=== PATIENT | female | born 1960 | race Caucasian/White ===

== ENCOUNTER 2020-06-23 15:59 | Inpatient (IN) | payer BC, SELFPAY ==
[2020-06-23] VITALS (8 sets, daily range): BP systolic 116–183; BP diastolic 65–96; PULSE 105–140; RESP 22–30; TEMP 36.6–37.6; O2SAT 91–96; BMI 25.7
--- NOTE | ~2020-06-23 | CT_ITS ---
EXAMINATION: CT chest wo con DATE: 06/26/2020 15:34 INDICATION: Sepsis secondary to pneumonia TECHNIQUE: Computed tomography (CT) of the chest was performed without intravenous contrast. Automate d exposure control and iterative reconstruction technique were employed. Exam dose: 147.11 mGy-cm to christopher exam DLP. COMPARISON: 02/27/2014, 06/19/2018 two-view chest x-ray examinations 06/23/2020 portable AP chest FINDINGS: Normal heart size. There is trace pericardial effusion. No hilar or mediastinal mass lesion or lymphadenopathy Trace pericardial effusion; no pleural effusion.. No thoracic aortic aneurysm is detected. There are increased reticular markings involving particularly the upper lobes and to a lesser extent the peripheral aspect of the lower lobes. Differential diagnosis includes interstitial pneumonitis, i nterstitial edema, interstitial fibrosis/usual interstitial pneumonia. There is discoid atelectasis or scarring in the left lower lobe. No pulmonary mass lesion is evident. No pneumothorax. Diffuse osteopenia. Degenerative changes of the cervical, thoracic and lumbar spine. IMPRESSION: Increased reticular lung markings involving the upper lobes and to a lesser extent lower lobes, with peripheral predilection; differential diagnosis includes interstitial pneumonitis, inter stitial edema and interstitial fibrosis/usual interstitial pneumonia Reviewed, dictated and finalized at [facility] Reviewed, dictated and finalized at [facility]. IMPRESSION: Increased reticular lung markings involving the upper lobes and to a lesser extent lower lobes, with peripheral predilection; differential diagno sis includes interstitial pneumonitis, interstitial edema and interstitial fibr osis/usual interstitial pneumonia
--- NOTE | ~2020-06-23 | XR_ITS ---
EXAMINATION: XR chest 1V portable INDICATION: Fever and shortness of breath TECHNIQUE: Portable AP chest at 1709 hours COMPARISON: 06/19/2018 FINDINGS: There are diffuse, patchy airspace opacities throughout all lung zones. No pleural effusion or pneumothorax is identified. The cardiomediastinal silhouette is normal. IMPRESSION: 1. Diffuse airspace opacities, consistent with pneumonia versus pulmonary edema or less likely atelec tasis. Reviewed, dictated and finalized at [facility]. IMPRESSION: 1. Diffuse airspace opacities, consistent with pneumonia versus pulmonary edema or less likely atelectasis.
[2020-06-23 16:57] LABS: Basophils Absolute Auto 0.1 K/mm3 (0.0-0.1); Basophils Percent Auto 0.3 % (0.2-1.2); Immature Granulocyte Absolute 0.14 K/mm3 (0.00-0.031); Immature Granulocyte Percent A 0.7 % (0-0.5); Lymphocytes Absolute Auto 0.55 K/mm3 (0.9-3.2); Lymphocytes Percent Auto 2.9 % (18.3-44.2); Mean Corpuscular HGB Conc 33.3 g/dl (32-36); Mean Corpuscular Hemoglobin 29.4 pg (26-34); Mean Corpuscular Volume 88.2 fl (80-100); Monocytes Absolute Auto 1.6 K/mm3 (0.1-0.6); Monocytes Percent Auto 8.5 % (2.6-8.5); Neutrophils Absolute Auto 16.6 K/mm3 (1.3-6.7); Neutrophils Percent Auto 87.6 % (45.5-73.1); Platelet Count Result 339 k/mm3 (150-375); Red Cell Distribution Width 14.1 % (11.5-14.5); White Blood Count 18.9 K/mm3 (4.5-10.0)
[2020-06-23] MEDS: SODIUM CHLORIDE 0.9% IV 1,000 ML 999 ML (17:05)
--- NOTE | 2020-06-23 17:05 | ED.FEVER ---
HPI - Fever General Chief Complaint: Fever Stated Complaint: FEVER,O2 SAT 89% PCP WANTS COVID TEST Time Seen by Provider: 06/23/20 17:05 History of Present Illness HPI Narrative: 60 yo female w/ h/o COPD sent from PCP office for suspected COVID 19. Went to PCP for fever, headache, SOB. She was found to be hypoxic and tachycardic. She reports that her symptoms have been present for a few days and getting worse. No known sick contacts. Related Data Allergies Allergy/AdvReac Type Severity Reaction Status Date / Time No Known Allergies Allergy Unverified 06/19/18 10:54 Review of Systems Review of Systems: All systems reviewed & are unremarkable except as noted in HPI and below Constitutional: Constitutional: Reports fatigue and Reports fever(s) ENT: Reports nasal congestion Cardiovascular: Cardiovascular: Denies chest pain Respiratory: Respiratory: Reports dyspnea Gastrointestinal: Gastrointestinal: Reports nausea Genitourinary: Genitourinary: Denies hematuria and Denies dysuria Musculoskeletal: Musculoskeletal: Reports myalgias Neurologic: Reports dizziness and Denies weakness [facility] Past Medical History Medical History COPD (chronic obstructive pulmonary disease) Family History Family History (Updated 04/07/16 @ 23:21 by DOCTOR UNKNOWN) Sibling Patient's sister is in good health Mother Family history of malignant neoplasm of breast in first degree relative Social History Social History Smoking status: Former smoker Smoking end date: 09/10/16 Alcohol intake: current Exam Const: General: no acute distress, alert and ill appearing acutely Orientation/consciousness: patient oriented x3 HENMT: Head: normal to inspection Resp: Effort & Inspection: tachypneic Auscultation: rhonchi and wheezes Cardio: Rate: tachycardic Rhythm: regular rhythm Heart sounds: no murmurs GI: Inspection: non-distended GI Palp: Yes Soft to palpation and No Tenderness to palpation present (GI) Skin: General skin exam: normal color Neuro: General: patient oriented x3, moves all extremities and CN's II-XI intact bilaterally Speech: normal speech Extrem: General: normal to inspection and no edema Course Vital Signs Vital signs: Vital Signs Temperature 37.6 C 06/23/20 16:19 Pulse Rate 140 H 06/23/20 16:19 Respiratory Rate 28 H 06/23/20 16:19 Blood Pressure 144/65 H 06/23/20 16:19 Pulse Oximetry 91 06/23/20 16:19 Temperature 37.6 C 06/23/20 16:19 Pulse Rate 129 H 06/23/20 18:32 Respiratory Rate 22 H 06/23/20 18:32 Blood Pressure 133/78 06/23/20 18:32 Pulse Oximetry 96 06/23/20 18:32 MDM - Fever Differential Diagnosis Differential diagnosis: Likely viral infection, sepsis and other (COVID-19, pneumonia) Medical Records Attestation: I reviewed the patient's medical records. Lab Data Attestation: I reviewed the patient's lab results. Result diagrams: 06/23/20 16:44 06/23/20 16:44 Labs: Lab Results 06/23/20 06/23/20 06/23/20 Range/Units 16:44 16:44 16:44 WBC 18.9 H (4.5-10.0) K/mm3 RBC 5.10 (4.2-5.4) M/mm3 Hgb 15.0 (12.0-15.0) g/dL Hct 45.0 (37.0-47.0) % MCV 88.2 (80-100) fl MCH 29.4 (26-34) pg MCHC 33.3 (32-36) g/dl RDW 14.1 (11.5-14.5) % Plt Count 339 (150-375) k/mm3 MPV 11.0 H (7.4-10.4) fl Immature Gran % (Auto) 0.7 H (0-0.5) % Neut % (Auto) 87.6 H (45.5-73.1) % Lymph % (Auto) 2.9 L (18.3-44.2) % Harrison % (Auto) 8.5 (2.6-8.5) % Eos % (Auto) 0.0 (0-4.4) % Baso % (Auto) 0.3 (0.2-1.2) % Lymph # (Auto) 0.55 L (0.9-3.2) K/mm3 Harrison # (Auto) 1.6 H (0.1-0.6) K/mm3 Eos # (Auto) 0.0 (0-0.3) K/mm3 Baso # (Auto) 0.1 (0.0-0.1) K/mm3 Abs Immat Gran (auto) 0.14 H (0.00-0.031) K/mm3 Absolute Neuts (auto) 16.6 H (1.3-6.7) K/mm3 Absolute Nucleated RBC 0.0 (0.0-0.012) K/mm3
[2020-06-23 17:07] LABS: Lactic Acid Reflex 1.3 mmol/L (0.7-2.1)
[2020-06-23 17:10] LABS: Alanine Aminotransferase 39 U/L (4-35); Albumin Level 3.7 g/dL (3.5-5.1); Alkaline Phosphatase 162 U/L (38-126); Anion Gap 8 mmol/L (8-16); Aspartate Amino Transferase 38 U/L (14-36); Blood Urea Nitrogen 8 mg/dL (7-17); Calcium 9.4 mg/dL (8.4-10.2); Carbon Dioxide 28 mmol/L (22-30); Chloride 97 mmol/L (98-107); Estimated CRCL calculation 91 ml/min; Estimated Glomerular Filt Rate > 60; Glucose 127 mg/dL (65-105); Potassium 3.9 mmol/L (3.4-5.0); Sodium 133 mmol/L (137-145)
[2020-06-23 17:12] LABS: INR 1.1; Prothrombin Time 13.9 Seconds (11.1-14.7)
[2020-06-23 17:13] LABS: Partial Thromboplastin Time 31.9 SECONDS (22.3-36.8)
[2020-06-23 17:46] LABS: CRP 33.5 mg/dL (<1.0)
[2020-06-23] MEDS: SODIUM CHLORIDE 0.9% IV 1,000 ML 999 ML IV CONT (20:08)
--- NOTE | 2020-06-23 22:04 | ADMGEN ---
This patient, Jazmine Goode, was admitted to Intensive Care Unit-2. Patient/family oriented to hospital policies and general routines including ID bracelet, bed and alarms, visiting hours, pain management, procedures, bathroom and other care routines, personal items, smoking policy, room service/diet, and visiting hours. Valuables list has been completed. Information on how to activate the Rapid Response Team has been discussed. Patient/Family are encouraged to report perceived risks to care and to ask questions if they do not understand what they are told or what they should do.
--- NOTE | 2020-06-23 22:30 | PM.IMHP ---
H&P: HPI History of Present Illness Date/Time: 06/23/20 22:30 Chief complaint: Sepsis due to pneumonia Narrative: Jazmine Goode is a 60 year old female a history of COPD. The patient stated that she has been sick for 3 days. The patient stated that she has pretty much been quarantine all year. Her goes out gets the groceries. She had her rate was visit her like 3 weeks ago but stated that they use social to since seeing her great niece did not come into her house. The patient has had a cough and fever for 3 days. Patient stated she feels like she has the flu. She had body aches about 3 days ago. She is very short of breath and does not wear any oxygen at home at all. There are no other sick contacts. Her white count was noted to be 18.9. The patient has gone back to smoking some to but she states she has not smoked in a couple weeks. AST is 38 ALT is 39 alkaline phosphatase 162 and C reactive protein 33.5 COVID test is pending. Patient was started on azithromycin and Rocephin. She was started on dexamethasone. Chest x-ray was read as diffuse airspace opacities consistent with pneumonia versus pulmonary edema release likely atelectasis. Date of service 06/23/20. Review of Systems Review of Systems: All systems reviewed & are unremarkable except as noted in HPI and below Constitutional: Constitutional: Reports as per HPI and Reports no additional constitutional complaints Eyes: Eyes: Reports as per HPI and Reports no additional eye complaints ENT: Reports system reviewed and no additional complaints, except as documented and Reports Normal hearing present Cardiovascular: Cardiovascular: Reports no additional cardiovascular complaints Respiratory: Respiratory: Reports no additional respiratory complaints and Reports no additional respiratory complaints Gastrointestinal: Gastrointestinal: Reports as per HPI and Reports no additional gastrointestinal complaints Musculoskeletal: Musculoskeletal: Reports no additional musculoskeletal complaints Integumentary/Breasts: Skin/Breast: Reports system reviewed and no additional complaints, except as docu and Reports as per HPI Neurologic: Reports system reviewed and no additional complaints, except as documented, Reports as per HPI and Reports Normal hearing present Psychiatric: Psychiatric: Reports no additional psychiatric complaints and Reports as per HPI Endocrine: Endocrine: Reports no additional endocrine complaints Hematologic/Lymphatic: Hematologic/Lymphatic: Reports no additional hematologic/lymphatic complaints Allergic/Immunologic: Allergic/Immunologic: Reports no additional allergic/immunologic complaints PMFSH Past Medical History Medical History COPD (chronic obstructive pulmonary disease) Tobacco use Surgical History Surgical History (Updated 06/23/20 @ 22:47 by Deena Milian NP) H/O rectal polypectomy Family History Family History Sibling Patient's sister is in good health History of colon resection Mother Family history of malignant neoplasm of breast in first degree relative Father Cancer Social History Social History (Updated 06/23/20 @ 23:06 by Deena Milian NP) Social History: Patient is and lives with her who is a durable power tax attorney for healthcare. Patient is a full code. She has no children. She does not work. 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 The patient quit smoking for short period time but is back to smoking of about 7 cigarettes or more a day. She tells me that to smoke to the last couple weeks. Smoking packs per day: 1 Smoking cigarettes per day: 20.0 Years smoked: 40 Smoking pack-years: 40.00 Smoking status: Former smoker Tobacco type: cigarettes Second hand tobacco smoke exposure: Yes Smoking end date: 09/10/16 Alcohol intake: never Substance use: never
[2020-06-23] MEDS: MONTELUKAST SODIUM 10 MG TABLET PO (23:10)
[2020-06-23] MEDS: ALBUTEROL SULFATE (*SP) AEROSOL 1 PUFF 2 PUFF INHALATION (23:20)
[2020-06-23 23:32] LABS: Influenza Control Positive
[2020-06-24] VITALS (17 sets, daily range): BP systolic 111–145; BP diastolic 62–97; PULSE 83–125; RESP 16–33; TEMP 36.1–36.9; O2SAT 92–97
--- NOTE | 2020-06-24 00:04 | PCRCNOTE ---
Window of time for administration has passed. See next scheduled administration.
[2020-06-24] MEDS: ALBUTEROL SULFATE (*SP) AEROSOL 1 PUFF 2 PUFF INHALATION ×4 (05:16→16:51)
[2020-06-24 05:36] LABS: Basophils Percent Auto 0.2 % (0.2-1.2); Eosinophils Absolute Auto 0.8 K/mm3 (0-0.3); Eosinophils Percent Auto 4.6 % (0-4.4); Hematocrit 42.9 % (37.0-47.0); Hemoglobin 13.8 g/dL (12.0-15.0); Immature Granulocyte Absolute 0.12 K/mm3 (0.00-0.031); Immature Granulocyte Percent A 0.7 % (0-0.5); Lymphocytes Absolute Auto 0.51 K/mm3 (0.9-3.2); Mean Corpuscular HGB Conc 32.2 g/dl (32-36); Mean Corpuscular Hemoglobin 29.1 pg (26-34); Mean Corpuscular Volume 90.5 fl (80-100); Mean Platelet Volume 11.1 fl (7.4-10.4); Monocytes Absolute Auto 0.3 K/mm3 (0.1-0.6); Monocytes Percent Auto 1.8 % (2.6-8.5); Neutrophils Absolute Auto 15.1 K/mm3 (1.3-6.7); Neutrophils Percent Auto 89.7 % (45.5-73.1); Platelet Count Result 333 k/mm3 (150-375); Red Blood Count 4.74 M/mm3 (4.2-5.4); Red Cell Distribution Width 14.3 % (11.5-14.5); White Blood Count 16.9 K/mm3 (4.5-10.0)
[2020-06-24 07:06] LABS: Alanine Aminotransferase 28 U/L (4-35); Albumin Level 3.1 g/dL (3.5-5.1); Alkaline Phosphatase 141 U/L (38-126); Anion Gap 6 mmol/L (8-16); Aspartate Amino Transferase 25 U/L (14-36); Bilirubin,Total 0.6 mg/dL (0.2-1.3); Blood Urea Nitrogen 9 mg/dL (7-17); Calcium 9.1 mg/dL (8.4-10.2); Carbon Dioxide 30 mmol/L (22-30); Chloride 103 mmol/L (98-107); Estimated CRCL calculation 111 ml/min; Estimated Glomerular Filt Rate > 60; Glucose 127 mg/dL (65-105); Magnesium 2.4 mg/dL (1.6-2.3); Phosphorus 3.2 mg/dL (2.5-4.5); Potassium 4.8 mmol/L (3.4-5.0); Sodium 139 mmol/L (137-145)
[2020-06-24 07:22] LABS: Lactate Dehydrogenase 328 U/L (313-618)
[2020-06-24 07:56] LABS: Thyroid Stimulating Hormone Reflex 0.213 uIU/mL (0.465-4.68)
[2020-06-24 09:01] LABS: Free T4 Free Thyroxine Reflex 1.85 ng/dL (0.78-2.19)
[2020-06-24 09:55] LABS: Total Triiodothyronine (T3) 0.88 NG/ML (0.97-1.69)
--- NOTE | 2020-06-24 11:32 | PM.IMPN ---
Progress Note: A&P Assessment and Plan (1) CAP (community acquired pneumonia): Code(s): J18.9 - Pneumonia, unspecified organism Status: Acute Assessment and Plan: Currently on Rocephin and Zithromax. Covid 19 SARS ruled out. Negative Covid PCR. (2) Tobacco use: Code(s): Z72.0 - Tobacco use Status: Chronic Assessment and Plan: 80 [id number] history Quit (3) COPD (chronic obstructive pulmonary disease): Code(s): J44.9 - Chronic obstructive pulmonary disease, unspecified Status: Chronic Assessment and Plan: Breathing treatments. Solumedrol 125 mg q 6 hours will taper (4) Sepsis due to pneumonia: Code(s): J18.9 - Pneumonia, unspecified organism; A41.9 - Sepsis, unspecified organism Status: Acute Assessment and Plan: Continue Rocephin + Zithromax. (5) Suspected COVID-19 virus infection: Code(s): Z20.828 - Contact with and (suspected) exposure to other viral communicable diseases Status: Acute Assessment and Plan: Ruled out with negative PCR. Subjective Date/time seen: 06/24/20 11:33 I have no more chills, dry cough productive of clear to nicole colored sputum. Review of Systems Review of Systems: Narrative: Patient presented to ED due to nasal congestion, persistent cough productive of clear to nicole colored sputum, chills, sob. Constitutional: Constitutional: Reports chills Eyes: Comments: No visual disturbances. ENT: Comments: no ear ache, no nasal discharge, no throat pain. Cardiovascular: Comments: no chest pain, no leg swelling, no orthopnea, no pnd, no palpitations. Respiratory: Comments: sob, persistent cough, fatigue. Gastrointestinal: Comments: no n/v/abdominal pain. Musculoskeletal: Comments: no joint swelling, no joint pain. Integumentary/Breasts: Comments: no rashes. Neurologic: Comments: no sensory motor deficit. Hematologic/Lymphatic: Comments: No LAD Exam Narrative: Exam Narrative: Lying in bed. Const: General: cooperative, comfortable, well developed, alert, awake, Physically active and ill appearing Nutritional Appearance: average body habitus Orientation/consciousness: patient oriented x3 Limitations: no limitations HENMT: Head: normal to inspection and normocephalic Ears: hearing grossly normal bilaterally General nose exam: Normal external nose present Face and sinus: normal facial exam Mouth: Yes Normal oral and palatal mucosa present Eyes: General: appearance normal, both eyes and all related structures Pupils: Equal, round and reactive pupils present EOM: EOMs intact bilaterally Neck: Neck: full ROM, no lymphadenopathy and no JVD Thyroid: thyroid normal Lymphatic: no lymphadenopathy noted Resp: Effort & Inspection: able to speak in complete sentences Auscultation: wheezes Other: Diminished throughout breath sounds. Cardio: Jugular venous distension: no JVD Rate: regular rate Rhythm: regular rhythm Heart sounds: S1 normal heart sound present and S2 normal heart sound present GI: Inspection: normal to inspection GI Palp: Yes Soft to palpation and Yes No hepatosplenomegaly present Skin: General skin exam: normal color Lesions: no lesions Rashes: no rashes Trauma: no lacerations or abrasions Wounds: no wounds Neuro: General: patient oriented x3 Cranial nerves: Yes CN's II-XII intact bilaterally and Yes Equal, round and reactive pupils present Speech: normal speech Gait exam (Neuro): Normal gait present Motor exam (neuro): 5/5 motor strength present throughout Sensory Exam: normal sensation Extrem: General: full ROM and no pedal edema Objective Data Vital Signs Vital Signs: Vital Signs - 24 hr 06/23/20 16:19 06/23/20 16:54 06/23/20 18:32 Temperature 99.6 F Pulse Rate 140 H 122 H 129 H Respiratory Rate 28 H 30 H 22 H Blood Pressure 144/65 H 183/87 H 133/78 Pulse Oximetry 91 95 96 06/23/20 21:06 06/23/20 21:50 06/23/20 22:00 Temperature 97.9 F
[2020-06-24 13:52] LABS: SARS-CoV-2 RNA PCR Negative
[2020-06-24] MEDS: methylPREDNISolone SOD SUCC 125 MG VIAL IV PUSH (17:45)
[2020-06-24] MEDS: MONTELUKAST SODIUM 10 MG TABLET PO (21:15)
[2020-06-25] VITALS (15 sets, daily range): BP systolic 135–156; BP diastolic 79–96; PULSE 89–125; RESP 18–24; TEMP 36.6–37.1; O2SAT 92–98
[2020-06-25] MEDS: methylPREDNISolone SOD SUCC 125 MG VIAL IV PUSH ×4 (00:11→17:54)
[2020-06-25] MEDS: ALBUTEROL SULFATE (*SP) AEROSOL 1 PUFF 2 PUFF INHALATION ×5 (01:20→20:43)
--- NOTE | 2020-06-25 07:39 | PM.IMPN ---
Progress Note: A&P Assessment and Plan (1) CAP (community acquired pneumonia): Code(s): J18.9 - Pneumonia, unspecified organism Status: Acute Assessment and Plan: Continue Zithromax and Rocephin Continue to monitor Legionella ag is pending. (2) Tobacco use: Code(s): Z72.0 - Tobacco use Status: Chronic Assessment and Plan: Nicotine patch as needed. (3) COPD (chronic obstructive pulmonary disease): Code(s): J44.9 - Chronic obstructive pulmonary disease, unspecified Status: Chronic Assessment and Plan: Continue breathing treatments Systemic steroids Supplemental Oxygen (4) Suspected COVID-19 virus infection: Code(s): Z20.828 - Contact with and (suspected) exposure to other viral communicable diseases Status: Acute Assessment and Plan: Ruled out (5) Acute respiratory failure with hypoxia: Code(s): J96.01 - Acute respiratory failure with hypoxia Status: Acute Assessment and Plan: On supplemental O2 Will try to wean off of O2 Pulmonology consult. Subjective Date/time seen: 06/25/20 07:39 I feel well. Review of Systems Review of Systems: Narrative: 60 yo with sob, persistent cough productive of clear to light nicole sputum. Constitutional: Comments: no night sweats, no chills, no rigors, no fevers. ENT: Comments: no ear pain, no throat pain, no nasal discharge or congestion. Cardiovascular: Comments: no chest pain, no pnd, no orthopnea, no leg swelling. Respiratory: Comments: persistent cough productive of clear to light nicole sputum, sob Gastrointestinal: Comments: no n/v/abdominal pain. Musculoskeletal: Comments: no joint swelling or pain. Integumentary/Breasts: Comments: no rashes Neurologic: Comments: no sensory motor deficit Hematologic/Lymphatic: Comments: No LAP Exam Narrative: Exam Narrative: Lying in bed, comfortable. Const: General: cooperative, comfortable, no acute distress, well developed, alert, awake, Physically active and ill appearing Nutritional Appearance: average body habitus Orientation/consciousness: patient oriented x3 Limitations: no limitations HENMT: Head: normal to inspection and normocephalic Ears: hearing grossly normal bilaterally General nose exam: Normal external nose present Face and sinus: normal facial exam Mouth: Yes Normal oral and palatal mucosa present Eyes: General: appearance normal, both eyes and all related structures Pupils: Equal, round and reactive pupils present EOM: EOMs intact bilaterally Neck: Neck: no lymphadenopathy and no JVD Thyroid: thyroid normal Resp: Effort & Inspection: able to speak in complete sentences Auscultation: wheezes and diminished lung sounds Cardio: Jugular venous distension: no JVD Rate: regular rate Rhythm: regular rhythm Heart sounds: S1 normal heart sound present and S2 normal heart sound present GI: Inspection: normal to inspection GI Palp: Yes Soft to palpation and Yes No hepatosplenomegaly present Skin: General skin exam: normal color Lesions: no lesions Rashes: no rashes Neuro: General: patient oriented x3 and CN's II-XI intact bilaterally Cranial nerves: Yes Equal, round and reactive pupils present Gait exam (Neuro): Normal gait present Motor exam (neuro): 5/5 motor strength present throughout Sensory Exam: normal sensation Extrem: General: normal to inspection, full ROM and no pedal edema Objective Data Vital Signs Vital Signs: Vital Signs - 24 hr 06/24/20 07:43 06/24/20 08:00 06/24/20 10:00 Temperature 96.9 F L Pulse Rate 96 91 110 H Respiratory Rate 30 H 27 H Blood Pressure 131/62 Pulse Oximetry 92 93 06/24/20 11:56 06/24/20 12:00 06/24/20 14:00 Temperature 97.2 F L Pulse Rate 102 H 97 101 H Respiratory Rate 22 H 33 H Blood Pressure 145/77 H Pulse Oximetry 94 95 06/24/20 16:00 06/24/20 16:51 06/24/20 17:43 Temperature 97.2 F L Pulse Rate 102 H 108 H 125 H Respiratory
[2020-06-25] MEDS: MONTELUKAST SODIUM 10 MG TABLET PO (21:35)
[2020-06-25] MEDS: SALINE 0.65% NAS SOLN 44 ML BTL 1 SPRAY NASAL (22:36)
[2020-06-25] MEDS: ACETAMINOPHEN 325 MG TABLET 650 MG PO (22:36)
[2020-06-26] VITALS (14 sets, daily range): BP systolic 132–151; BP diastolic 70–86; PULSE 82–105; RESP 15–24; TEMP 36.2–36.7; O2SAT 92–96
[2020-06-26] MEDS: ALBUTEROL SULFATE (*SP) AEROSOL 1 PUFF 2 PUFF INHALATION ×5 (00:05→20:21)
[2020-06-26] MEDS: methylPREDNISolone SOD SUCC 125 MG VIAL IV PUSH ×4 (00:14→17:23)
--- NOTE | 2020-06-26 07:42 | PM.IMPN ---
Progress Note: A&P Assessment and Plan (1) Acute respiratory failure with hypoxia: Code(s): J96.01 - Acute respiratory failure with hypoxia Status: Acute Assessment and Plan: On supplemental oxygen Breathing treatments Continuous pulse ox (2) CAP (community acquired pneumonia): Code(s): J18.9 - Pneumonia, unspecified organism Status: Acute Assessment and Plan: Rocephin and Doxycycline Patient states that Azithromycin makes her feel weird (3) Tobacco use: Code(s): Z72.0 - Tobacco use Status: Chronic Assessment and Plan: Nicotine patch as needed. (4) COPD (chronic obstructive pulmonary disease): Code(s): J44.9 - Chronic obstructive pulmonary disease, unspecified Status: Chronic Assessment and Plan: Systemic steroids Breathing treatments Symbicort. Pulmonology consult. (5) Sepsis due to pneumonia: Code(s): J18.9 - Pneumonia, unspecified organism; A41.9 - Sepsis, unspecified organism Status: Acute Assessment and Plan: Improved. (6) Suspected COVID-19 virus infection: Code(s): Z20.828 - Contact with and (suspected) exposure to other viral communicable diseases Status: Acute Assessment and Plan: Ruled out with negative PCR. Subjective Date/time seen: 06/26/20 07:42 I feel much better. Review of Systems Review of Systems: Narrative: Presented to ED due to sob, cough x 2 weeks. Constitutional: Comments: no fevers, no chills, no rigors. Eyes: Comments: no vision changes. ENT: Comments: no ear ache, no throat pain, no nasal discharge, no nasal congestion. Cardiovascular: Comments: no chest pain, no leg swelling. Respiratory: Comments: sob, persistent cough. Gastrointestinal: Comments: no n/v/abdominal pain. Musculoskeletal: Comments: no joint pain, no joint swelling. Integumentary/Breasts: Comments: no rashes. Neurologic: Comments: no sensory motor deficit. Hematologic/Lymphatic: Comments: No LAP Exam Narrative: Exam Narrative: Chronically ill looking, lying in bed. Const: General: cooperative, comfortable, no acute distress, well developed, alert, awake and Physically active Nutritional Appearance: average body habitus Orientation/consciousness: patient oriented x3 HENMT: Head: normal to inspection and normocephalic Ears: hearing grossly normal bilaterally General nose exam: Normal external nose present Face and sinus: normal facial exam Mouth: Yes Normal oral and palatal mucosa present Eyes: General: appearance normal, both eyes and all related structures Pupils: Equal, round and reactive pupils present EOM: EOMs intact bilaterally Neck: Neck: normal visual inspection, full ROM, no lymphadenopathy and no JVD Lymphatic: no lymphadenopathy noted Resp: Effort & Inspection: normal respiratory effort Auscultation: wheezes and diminished lung sounds Cardio: Jugular venous distension: no JVD Rate: regular rate Rhythm: regular rhythm Heart sounds: S1 normal heart sound present and S2 normal heart sound present GI: Inspection: normal to inspection GI Palp: Yes Soft to palpation and Yes No hepatosplenomegaly present Auscultation: normal bowel sounds Skin: General skin exam: normal color Lesions: no lesions Rashes: no rashes Trauma: no lacerations or abrasions Wounds: no wounds Hair: normal Neuro: General: patient oriented x3 and CN's II-XI intact bilaterally Cranial nerves: Yes CN's II-XII intact bilaterally and Yes Equal, round and reactive pupils present Motor exam (neuro): 5/5 motor strength present throughout Sensory Exam: normal sensation Extrem: General: normal to inspection and pedal edema (R lateral maleolus.) Objective Data Vital Signs Vital Signs: Vital Signs - 24 hr 06/25/20 08:00 06/25/20 10:00 06/25/20 12:00 Temperature 98.0 F Pulse Rate 103 H 111 H 116 H Respiratory Rate 24 H Blood Pressure 138/82 Pulse Oximetry 92 06/25/20 14:00
[2020-06-26] MEDS: DOXYCYCLINE HYCLATE 100 MG TABLET 200 MG PO (17:44)
[2020-06-26] MEDS: MONTELUKAST SODIUM 10 MG TABLET PO (20:04)
--- NOTE | 2020-06-26 21:03 | PM.CNPUL ---
Assessment and Plan Assessment and plan (1) COPD (chronic obstructive pulmonary disease): Qualifiers: COPD type: COPD with acute exacerbation Qualified Code(s): J44.1 - Chronic obstructive pulmonary disease with (acute) exacerbation Code(s): J44.9 - Chronic obstructive pulmonary disease, unspecified Status: Chronic Assessment and Plan: - agree with Symbicort 160/4.5 mcg 2 puffs via Spacer - d/c solumedrol and start prednisone 30 mg daily for 4 more days - can switch to oral levaquin 500 mg daily for 4 more days - home oxygen assessment - can discharge home - followup with our pulmonary clinic or primary care physician in 2-4 weeks. History of Present Illness History of Present Illness Consult date: 06/26/20 Chief complaint: Sepsis due to pneumonia Narrative: 60 y/o female with COPD who was previously not on home O2 presents with with COPD exacerbation. She had increased cough, chills and sweats, body aches cough was mild productive but no purulent. She also had a mild fever. WBC was elevated on admission with peripheral neutrophilia. She denied loss of taste or smell or GI symptoms. She was started on bronchodilation, systemic steroids and antibiotics and feels much better today. She was also in hypoxemic respiratory failure but is now on just 3 liters nasal cannula. She quit smoking about three months ago and has 35-40 pack year smoking history. [place] and says her allergies flare up in the spring and fall and those sometimes caused in creased labored breathing but this is her first COPD exacerbation. She was well maintained on Symbicort 160/4.5 mcg 2 puffs bid + Incruse Ellipta 62.5 mcg 1 puff daily as an outpatient. Review of Systems Review of Systems: All systems reviewed & are unremarkable except as noted in HPI and below PMFSH Past Medical History Medical History COPD (chronic obstructive pulmonary disease) Tobacco use Surgical History Surgical History (Updated 06/23/20 @ 22:47 by Deena Milian NP) H/O rectal polypectomy Family History Family History Sibling Patient's sister is in good health History of colon resection Mother Family history of malignant neoplasm of breast in first degree relative Father Cancer Social History Social History (Updated 06/23/20 @ 23:06 by Deena Milian NP) Social History: Patient is and lives with her who is a durable power litigation attorney associate for healthcare. Patient is a full code. She has no children. She does not work. 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 The patient quit smoking for short period time but is back to smoking of about 7 cigarettes or more a day. She tells me that to smoke to the last couple weeks. Smoking packs per day: 1 Smoking cigarettes per day: 20.0 Years smoked: 40 Smoking pack-years: 40.00 Smoking status: Former smoker Tobacco type: cigarettes Second hand tobacco smoke exposure: Yes Smoking end date: 09/10/16 Alcohol intake: never Substance use: never Gender identity (if verbalized by the patient): Female Spiritual care concerns: No Meds Home Medications and Allergies Home Medications Medication Instructions Recorded Confirmed Type budesonide-formoterol [Symbicort] 2 puff INHALATION BID 06/23/20 06/23/20 History montelukast [Singulair] 10 mg PO HS 06/23/20 06/23/20 History umeclidinium [Incruse Ellipta] 1 inh INHALATION DAILY 06/23/20 06/23/20 History Allergies Allergy/AdvReac Type Severity Reaction Status Date / Time azithromycin AdvReac Confusion Verified 06/26/20 16:49 Vital Signs Vital Signs - 24 hr 06/25/20 22:00 06/25/20 23:04 06/26/20 00:00 Temperature 37.1 C Pulse Rate 96 91 91 Respiratory Rate 18 18 Blood Pressure 137/79 Pulse Oximetry 98 92 06/26/20 02:00 06/26/20 04:00 06/26/20 06:00 Temperature 36.4 C
[2020-06-27] VITALS (19 sets, daily range): BP systolic 134–156; BP diastolic 66–82; PULSE 81–118; RESP 15–20; TEMP 36–36.7; O2SAT 87–96
[2020-06-27] MEDS: predniSONE 20 MG, predniSONE 10 MG 30 MG PO (08:05)
[2020-06-27] MEDS: FLUTICASONE PROPIONATE 0.05% NA SPR 16 GM BTL (*BKC) 2 SPRAY NASAL (08:06)
--- NOTE | 2020-06-27 09:07 | PM.PNPUL ---
Progress Note: A&P Assessment and Plan (1) Acute respiratory failure with hypoxia: Code(s): J96.01 - Acute respiratory failure with hypoxia Status: Acute Assessment and Plan: home oxygen assessment (2) COPD exacerbation: Code(s): J44.1 - Chronic obstructive pulmonary disease with (acute) exacerbation Status: Acute Assessment and Plan: Switched to oral levaquin and prednisone Can be discharged home resume home regimen of Symbicort and Incruse upon discharge with PRN albuterol MDI home oxygen assessment prior to discharge she would like to f/u with her PCP in [place] for her COPD Time Spent With Patient Time with patient: 15 - 25 minutes Subjective Date/time seen: 06/27/20 09:07 Interval history: Feeling well. No complaints, vitals stable Review of Systems Review of Systems: All systems reviewed & are unremarkable except as noted in HPI and below Exam Const: General: cooperative, healthy appearing, comfortable, no acute distress, well developed, alert, awake and Physically active Nutritional Appearance: average body habitus and well nourished Orientation/consciousness: oriented to person, oriented to place and oriented to time Limitations: no limitations HENMT: Head: normal to inspection, normocephalic and atraumatic Eyes: General: appearance normal, both eyes and all related structures Neck: Neck: trachea midline and supple Resp: Effort & Inspection: normal respiratory effort and able to speak in complete sentences Auscultation: wheezes and diminished lung sounds Cardio: Jugular venous distension: no JVD Rate: regular rate Rhythm: regular rhythm Heart sounds: S1 normal heart sound present and S2 normal heart sound present GI: Inspection: normal to inspection Auscultation: normal bowel sounds Skin: General skin exam: normal color and no rashes or lesions noted Neuro: General: oriented to person, oriented to place, oriented to time and patient oriented x3 Extrem: General: normal to inspection and no clubbing, cyanosis or edema Psych: Appearance: grossly normal Mental Status: mental status grossly normal Objective Data Vital Signs Vital Signs: Vital Signs - 24 hr 06/26/20 10:00 06/26/20 12:00 06/26/20 14:20 Temperature 36.6 C 36.7 C Pulse Rate 103 H 105 H 92 Respiratory Rate 24 H 15 Blood Pressure 151/70 H 132/70 Pulse Oximetry 94 94 06/26/20 16:00 06/26/20 17:52 06/26/20 20:00 Temperature 36.2 C L Pulse Rate 91 96 82 Respiratory Rate 20 Blood Pressure 142/72 H Pulse Oximetry 94 06/26/20 20:25 06/26/20 22:08 06/27/20 00:00 Temperature 36.5 C Pulse Rate 93 92 87 Respiratory Rate 20 18 Blood Pressure 142/86 H Pulse Oximetry 94 95 06/27/20 01:22 06/27/20 04:00 06/27/20 06:06 Temperature 36.1 C L 36.0 C L Pulse Rate 85 86 99 Respiratory Rate 16 18 Blood Pressure 139/76 156/80 H Pulse Oximetry 96 93 Intake/Output Intake/Output: Intake & Output 06/24/20 06/25/20 06/26/20 06/27/20 23:59 23:59 23:59 23:59 Intake Total 895 1400 1630 300 Output Total 450 900 200 850 Balance 470 343 6896 -550 Meds/Results Medications: Active Medications Generic Name Dose Route Start Last Admin Trade Name Freq PRN Reason Stop Dose Admin Acetaminophen 650 mg 06/25/20 21:36 06/25/20 22:36 Acetaminophen 325 Mg Tablet PO 650 mg Q6H PRN Administration Mild Pain (1-3) or Fever Budesonide/Formoterol Fumarate 2 puff 06/24/20 08:00 06/27/20 08:40 Budesonide/Form 160-4.5 Mcg (*Sp) INHALATION 2 puff Q12HRT JEFFREY Administration Fluticasone Propionate 2 spray 06/27/20 09:00 06/27/20 08:06 Fluticasone Propionate 0.05% Na Spr 16 Gm Btl (*Bkc) NASAL 2 spray QAM JEFFREY Administration Levofloxacin 500 mg 06/27/20 09:00 06/27/20 08:05 Levofloxacin Tab 500 Mg Tablet PO 06/30/20 09:00 500 mg DAILY JEFFREY Administration Montelukast Sodium 10 mg 06/23/20 22:50 06/26/20 20:04 Montelukast Sodiu
--- NOTE | 2020-06-27 11:10 | HOMEO2EVAL ---
Home Oxygen Evaluation RC: Home Oxygen (O2) Evaluation Start: 06/27/20 07:11 Freq: ONCE Status: Active Protocol: RPE Activity Type Activity Date Activity User E-Sign Co-Sign Detail Recorded Client Recorded Date Recorded By Document 06/27/20 10:45 RES [email or web address] 06/27/20 11:03 RES Document 06/27/20 10:46 RES [email or web address] 06/27/20 11:09 RES Document 06/27/20 10:47 RES [email or web address] 06/27/20 11:09 RES Document 06/27/20 10:48 RES [email or web address] 06/27/20 11:09 RES Document 06/27/20 10:49 RES [email or web address] 06/27/20 11:09 RES Document 06/27/20 10:50 RES [email or web address] 06/27/20 11:09 RES Document 06/27/20 10:51 RES [email or web address] 06/27/20 11:09 RES 06/27/20 06/27/20 06/27/20 10:45 10:46 10:47 Home O2 Evaluation Test Phase Resting Exercise Exercise Oxygen Delivery Room Air Room Air Room Air Oxygen Flow Rate (L/min) Fraction of Inspired Oxygen (%) 21 21 21 Pulse Oximetry (90-100 %) 92 89 L 88 L Pulse Rate (60-100 beats/min) 117 H 117 H 118 H Activity Tolerance Good Good Good Rate of Perceived Exertion (PE) 11 Fairly light 11 Fairly light Home Oxygen Evaluation Comments pt resting pt now placed comfortably on 1lpm for sats of 92% sats of 88% Treatment Charges O2 Evaluation 06/27/20 06/27/20 06/27/20 10:48 10:49 10:50 Home O2 Evaluation Test Phase Exercise Exercise Exercise Oxygen Delivery Nasal Cannula Nasal Cannula Nasal Cannula Oxygen Flow Rate (L/min) 1 2 3 Fraction of Inspired Oxygen (%) 24 28 32 Pulse Oximetry (90-100 %) 87 L 88 L 90 Pulse Rate (60-100 beats/min) 118 H 115 H 116 H Activity Tolerance Good Good Good Rate of Perceived Exertion (PE) 11 Fairly light 11 Fairly light 11 Fairly light Home Oxygen Evaluation Comments pt now placed pt now placed on 2lpm for on 3lpm for sats of 87% sats of 88%. pt stated she isnt SOB, her sats went up to 90% on the 3lpm nasal cannula Treatment Charges 06/27/20 10:51 Home O2 Evaluation Test Phase Resting Oxygen Delivery Room Air Oxygen Flow Rate (L/min) Fraction of Inspired Oxygen (%) 21 Pulse Oximetry (90-100 %) 90 Pulse Rate (60-100 beats/min) 118 H Activity Tolerance Good Rate of Perceived Exertion (PE) 11 Fairly light Home Oxygen Evaluation Comments pt rests comfortable on room air at rest and needs 3lpm with activity. Treatment Charges
--- NOTE | 2020-06-27 11:11 | PCRCNOTE ---
Home O2 eval is complete. Patient requires 3plm Nasal Cannula with activity. [facility] will be notified.
--- NOTE | 2020-06-27 13:43 | PM.DS ---
DS: Admitting Diagnosis Admitting Diagnosis Admitting Diagnosis: Sepsis due to pneumonia DS: Discharge Diagnosis Discharge Diagnosis (1) Acute respiratory failure with hypoxia: Code(s): J96.01 - Acute respiratory failure with hypoxia Status: Acute Assessment and Plan: (2) CAP (community acquired pneumonia): Code(s): J18.9 - Pneumonia, unspecified organism Status: Acute Assessment and Plan: (3) Tobacco use: Code(s): Z72.0 - Tobacco use Status: Chronic Assessment and Plan: (4) COPD (chronic obstructive pulmonary disease): Qualifiers: COPD type: COPD with acute exacerbation Qualified Code(s): J44.1 - Chronic obstructive pulmonary disease with (acute) exacerbation Code(s): J44.9 - Chronic obstructive pulmonary disease, unspecified Status: Chronic Assessment and Plan: (5) Sepsis due to pneumonia: Code(s): J18.9 - Pneumonia, unspecified organism; A41.9 - Sepsis, unspecified organism Status: Acute Assessment and Plan: (6) Suspected COVID-19 virus infection: Code(s): Z20.828 - Contact with and (suspected) exposure to other viral communicable diseases Status: Acute Assessment and Plan: DS: Summary Hospital Course Reason for hospitalization: 60-year-old woman with a history of COPD, who presented to the emergency department after she began feeling sick with shortness of breath, cough, fever, body aches which began on 06/19/2020. At her primary care provider's office to be at 80 and she was sent to the ER for further evaluation. Initial vitals showed Temperature of 99.6?, blood pressure 144/65, tachycardic heart rate 140, increased respiratory rate at 28 oxygen saturation 91% on 4 L via nasal cannula. Initial labs showed at 18,900, with a left shift, normal coag panel, slight hyponatremia at 133, normal renal function, slight elevation to LFTs and CRP was 33.5. She was tested for COVID and influenza a and B which was negative. Chest x-ray showed diffuse airspace opacities, consistent with pneumonia versus pulmonary edema. She was admitted into the hospital and received IV antibiotics for community-acquired pneumonia. While she was here she slowly improved with treatment of her pneumonia but she still required some oxygen. She had a CT of her chest without contrast which showed Increased reticular lung markings involving the upper lobes and to a lesser extent lower lobes, with peripheral predilection; differential diagnosis includes interstitial pneumonitis, interstitial edema and interstitial fibrosis/usual interstitial pneumonia. Pulmonology evaluated the patient and recommended switching to oral Levaquin and oral prednisone for another few days. Home oxygen evaluation recommends 3 L of oxygen with activity and no oxygen at rest. She will continue with her inhalers and will follow-up with her primary care provider and fire control technician as an outpatient. Vital signs are stable at this point. She is stable for discharge. Patient understands and agrees the plan all questions answered. Status at Discharge Cognitive/behavioral status at discharge: Stable, improved. Time Spent with Patient Time attestation: Total time spent providing and/or coordinating discharge services: Time spent: Greater than 30 minutes Exam Narrative: Exam Narrative: General: 60-year-old woman sitting up in bed resting comfortably on 3L via NC. Appears comfortable. In no acute distress. Skin: No jaundice or cyanosis. Good skin turgor. Neck: Full range of motion. Supple. Respiratory: Distant lung sounds to anterior chest bilaterally and posterior slight inspiratory wheezing noted throughout. No bony chest wall tenderness. Cardiovascular: The heart has a regular rate and rhythm without murmur. Lower extremities: No lower extremity edema. Distal pulses are easily palpated.
[2020-06-27 16:23] LABS: Legionella pneumophila Ag Ur Not Detected (Not Detected)
--- NOTE | 2020-07-01 08:45 | PC.NURSE ---
Blood cx are negative
== END 2020-06-27 15:22 | disposition home or self-care (01) | DRG 871 ==
LOC: ANHED 18:48 → ANHICU 19:56 → ANH2MED 06-25 10:44 → ANHICU 06-30 14:53
PROVIDERS: Nurse Practitioner; Admitting Provider Internal Medicine; Emergency Provider Emergency Medicine; PCP Internal Medicine; Visit Provider Physician Assistant
DX: A41.9 Sepsis, unspecified organism (principal); J18.9 Pneumonia, unspecified organism; J96.01 Acute respiratory failure with hypoxia; J44.0 Chronic obstructive pulmonary disease with (acute) lower respiratory infection; J44.1 Chronic obstructive pulmonary disease with (acute) exacerbation; E87.1 Hypo-osmolality and hyponatremia; Z20.828 Contact with and (suspected) exposure to other viral communicable diseases; Z23 Encounter for immunization; F17.210 Nicotine dependence, cigarettes, uncomplicated
CPT/HCPCS: 36415; 71045; 71250; 80053; 82728; 83605; 83615; 83735; 84100; 84439; 84443; 84480; 85025; 85610; 85730; 86140; 87040; 87070; 87205; 87449; 87635; 87804; 90471; 90653; 94618; 94640; 94667; 96361; 96365; 96367; 96375; 97110; 97161; 97165; 97530; 99285; A9270; C9803; G0008; J0131; J0456; J0696; J1100; J2930; J7030; J7512; U0003

== ENCOUNTER 2023-03-23 08:00 | Outpatient (CLI) | payer BC, SELFPAY ==
--- NOTE | ~2023-03-23 | CT_ITS ---
CT Scan of the Chest without Contrast: Clinical Indication: Smoking history, COPD Technique: Contiguous sections were acquired throughout the chest without intravenous contrast. Dose reduction technique was used on this scan by utilizing automated exposure control and iterative recon struction technique. The dose-length product (DLP) was 159.14 mGy-cm. COMPARISON: 06/26/2020 Findings: There is no evidence of any significant mediastinal, hilar or axillary lymphadenopathy. There are ath erosclerotic calcifications of the aorta. There is no evidence of pleural or pericardial effusion. There is mild emphysema. Left basilar scarring is present. 3 mm left lower lobe pulmonary nodule is s imilar to prior exam. Images through the upper abdomen reveal no abnormalities. Impression: No acute abnormality evident. Mild emphysema. Probable left basilar scarring or other chronic interstitial change. 3 mm left lower lobe pulmonary nodule, similar to prior exam. Reviewed, dictated and finalized at [facility]. Impression: No acute abnormality evident. Mild emphysema. Probable left basilar scarring or other chronic interstitial change. 3 mm left lower lobe pulmonary nodule, similar to prior exam.
[2023-03-23 08:20] VITALS: PULSE 87; O2SAT 94
[2023-03-23 08:25] VITALS: PULSE 90; O2SAT 88
[2023-03-23 08:30] VITALS: PULSE 92; O2SAT 91
[2023-03-23 08:45] VITALS: PULSE 89; O2SAT 92
--- NOTE | 2023-03-23 08:52 | HOMEO2EVAL ---
Evaluation was performed at [facility] Home Oxygen Evaluation RC: Home Oxygen (O2) Evaluation Start: 03/23/23 08:50 Freq: Status: Active Protocol: RPE Activity Type Activity Date Activity User E-sign Co-sign Detail Recorded Client Recorded Date Recorded By Document 03/23/23 08:20 [facility] [email or web address] 03/23/23 08:52 PK Document 03/23/23 08:25 PK [email or web address] 03/23/23 08:52 PK Document 03/23/23 08:30 [facility] [email or web address] 03/23/23 08:52 [facility] Document 03/23/23 08:45 [facility] [email or web address] 03/23/23 08:52 [facility] 03/23/23 03/23/23 03/23/23 08:20 08:25 08:30 Home O2 Evaluation [Oxygen] -Test Phase Resting Exercise Exercise -Oxygen Delivery Room Air Room Air Nasal Cannula -Oxygen Flow Rate (L/min) 1 -Fraction of Inspired Oxygen (%) 0 [Pulse Oximetry] -Pulse Oximetry (90-100 %) 94 88 L 91 [Pulse Rate] -Pulse Rate (60-100 beats/min) 87 90 92 [Evaluation] -Activity Tolerance Good [Charges] -Treatment Charges O2 Evaluation - Outpatient 03/23/23 08:45 Home O2 Evaluation [Oxygen] -Test Phase Resting -Oxygen Delivery Room Air -Oxygen Flow Rate (L/min) -Fraction of Inspired Oxygen (%) [Pulse Oximetry] -Pulse Oximetry (90-100 %) 92 [Pulse Rate] -Pulse Rate (60-100 beats/min) 89 [Evaluation] -Activity Tolerance [Charges] -Treatment Charges
== END 2023-03-23 08:01 | disposition home or self-care (01) ==
PROVIDERS: PCP Nurse Practitioner Family; Visit Provider Nurse Practitioner Family
DX: J44.9 Chronic obstructive pulmonary disease, unspecified (principal); J84.9 Interstitial pulmonary disease, unspecified; Z87.891 Personal history of nicotine dependence; J43.9 Emphysema, unspecified; R91.8 Other nonspecific abnormal finding of lung field
CPT/HCPCS: 71250; 94060; 94618; 94726; 94729

== ENCOUNTER 2023-03-23 08:03 | Outpatient (CLI) | payer BC, SELFPAY ==
--- NOTE | 2023-03-26 16:47 | WPDPFTINT ---
PFT Procedure Performed PFT Procedure Performed Spirometry with Pre/Post Bronchodilator Plethysmography (Lung Vol) Diffusing Cap (DLCO) Flow Vol Loop PFT Interpretation DOS: 03/23/2023 REQUESTING: Toby Low APRN REASON FOR TESTING: COPD PULMONARY FUNCTION TESTS Results are reliable and reproducible. Spirometry: pre bronchodilator FEV1 is 0.92 L, 36% predicted, severely reduced. Pre bronchodilator FVC is 2.43 L, 75% predicted, reduced. FEV1/ FVC ratio 38%, reduced. After bronchodilator there is a 2% drop in the FEV1, 3% increase in the FVC, non statistically significant changes. Lung volumes: Total lung capacity is 5.99 L, 115% predicted, normal. Residual volume is 3.56 L, 173% predicted, severely elevated. RV/TLC is 59% predicted, increased, consistent with air trapping. Diffusion: DLCO is 8.9, 41% predicted, severely decreased. DLCO/VA is 2.73, 62% predicted, mildly decreased. Flow volume loop: There is coving of the expiratory limb. IMPRESSION: Extremely severe obstructive ventilatory defect without response to bronchodilator, severe air trapping, severe diffusion impairment that partially corrects for alveolar volume. This is consistent with emphysema. Compared to her prior study on 03/03/2014 FEV1 was 1.69 L, 66%, FVC was 2.91 L, 86%, airflow obstruction was present FEV1/FVC was 58%. No bronchodilator was given, total lung capacity was 6.10 L, 118% and the residual volume is 2.8 L, 151% DLCO was 13.7, 67% and the DLCO/VA was 3.16 L, 80%. Compared to the prior study the emphysema process has worsened significantly. Eboni Willis MD
== END 2023-03-23 08:04 | disposition home or self-care (01) ==
PROVIDERS: PCP Nurse Practitioner Family; Visit Provider Nurse Practitioner Family
DX: R09.02 Hypoxemia (principal); R94.2 Abnormal results of pulmonary function studies
CPT/HCPCS: 94060; 94726; 94729